=== PATIENT | female | born 1975 | race Caucasian/White ===

== ENCOUNTER → 2016-07-17 | Outpatient (CLI) | payer BC ==
[2014-12-19 13:45] VITALS: BP 128/81
[~2016-07-17] MED LIST: IBUP400T18 PO; IOHEXOL 300 MG/ML 75 ML VIAL. IV ONE; IOHEXOL 300 MG/ML 75 ML VIAL. ONE; TRAM-48 PO
--- NOTE | 2016-07-17 15:40 | RAD ---
CTA of the chest with contrast, 07/17/2016: History: Cough, shortness of breath Multidetector imaging was performed following an IV bolus injection of iodinated contrast material. Multiplanar reconstructions were produced including coronal MIP images. The degree of opacification of the pulmonary arteries is suboptimal, apparently related to the patient's size. No filling defects are seen in the main or lobar pulmonary arteries to suggest pulmonary emboli. The smaller pulmonary arteries are poorly delineated due to artifacts. There is minimal calcific plaquing of the thoracic aorta without evidence of aneurysm. No mediastinal or hilar adenopathy is seen. There is no evidence of pleural fluid. There are mild patchy groundglass opacities in both lungs. No dense pulmonary consolidation or mass is seen. The liver is of lower than normal density compatible with hepatic steatosis. There are mild scattered spurs in the spine. IMPRESSION: 1. No CT evidence of central pulmonary emboli, although the segmental and smaller pulmonary arteries were not adequately delineated due to technical factors. 2. Mild patchy groundglass opacities in both lungs, which may be due to a variety of causes including pneumonia on an infectious or hypersensitivity basis, pulmonary edema or interstitial lung disease. 3. Hepatic steatosis. PQRS Compliance Statement: One or more of the following individualized dose reduction techniques were utilized for this examination: 1. Automated exposure control 2. Adjustment of the mA and/or kV according to patient size 3. Use of iterative reconstruction technique
== END | disposition home or self-care (01) ==
LOC: CT 11:41
PROVIDERS: ATTEND Family Medicine
DX: R91.8 Other nonspecific abnormal finding of lung field (principal); K76.0 Fatty (change of) liver, not elsewhere classified; E11.9 Type 2 diabetes mellitus without complications; J44.9 Chronic obstructive pulmonary disease, unspecified
CPT/HCPCS: 71275; Q9967

== ENCOUNTER → 2019-11-20 | Outpatient (CLI) | payer BC ==
[2014-12-19 13:45] VITALS: BP 128/81
[~2019-11-20] MED LIST changes: -IOHEXOL 300 MG/ML 75 ML VIAL. IV ONE; -IOHEXOL 300 MG/ML 75 ML VIAL. ONE
--- NOTE | 2019-11-20 11:32 | RAD ---
EXAM: Pelvic sonogram. HISTORY: Vaginal bleeding. TECHNIQUE: Transabdominal sonographic imaging of the pelvis was performed. FINDINGS: The uterus and ovaries are surgically absent. The bladder is unremarkable. There is no pelvic mass, cyst or free fluid. IMPRESSION: 1. Surgically absent uterus and ovaries. 2. Otherwise, unremarkable pelvic sonogram. Electronically signed by: Carol Sagastume MD (11/20/2019 11:29 AM) [facility]
== END | disposition home or self-care (01) ==
LOC: US 08:55
PROVIDERS: ATTEND Family Medicine
DX: N94.6 Dysmenorrhea, unspecified (principal); Z90.710 Acquired absence of both cervix and uterus; Z90.722 Acquired absence of ovaries, bilateral
CPT/HCPCS: 76856

== ENCOUNTER 2019-12-24 12:27 | Emergency (ER) | payer BC ==
[~2019-12-24] VITALS: Ht 162.6 cm; Wt 97.3 kg
--- NOTE | 2019-12-24 12:58 | PHYS DOC ---
Past History Past Medical History: Anxiety, Asthma, Depression, Diabetes, Other Additional Past Medical Histor: PTSD Past Surgical History: , Hysterectomy Alcohol Use: Occasionally Drug Use: None General Adult EDM: Chief Complaint: MULTIPLE COMPLAINTS HPI: HPI: The history was obtained from the patient. Patient is a 44-year-old female with PMH anxiety, depression, insomnia, PTSD who presents with a chief complaint of chest tightness. Patient states that she experienced allergic reaction 2 days ago. She states she accidentally ingested cinnamon which she knows she has an allergy to. States at that time she began having shaking sensation and a mild rash. She states that she took a double dose of her home Claritin at the time. She states she does not react well to Benadryl. She states that she never had any shortness of breath or throat closure feeling. She states today when she woke up she felt somewhat shaky and had chest tightness. She also notes that it is somewhat difficult to swallow. Denies wheezing. Denies rash. Denies vomiting or diarrhea. Denies any history of exertional chest pain. Denies history of coronary artery disease or invasive cardiac testing. Denies family history of cardiac disease at young age. Denies cough or fever. States she does not think this is related to her history of anxiety. She does take Xanax nightly and during the day as needed. Denies any drug or alcohol ingestions. States that her family doctor encouraged her to report to the emergency department. No other complaints. Patient denies any history of immobilization greater than 48 hours, recent hospitalizations, recent surgery, recent trauma, , oral contraceptive usage, hormone replacement therapy, air travel greater than 8 hours, recent infectious disease, or general deterioration of their overall condition. Review of Systems: Review of Systems: Constitutional: Denies fever or chills Eyes: Denies change in visual acuity HENT: Denies nasal congestion or sore throat Respiratory: Denies cough or shortness of breath Cardiovascular: Positive for chest pain GI: Denies abdominal pain, nausea, vomiting, bloody stools or diarrhea : Denies dysuria Musculoskeletal: Denies back pain or joint pain Integument: Denies rash Neurologic: Denies headache, focal weakness or sensory changes Endocrine: Denies polyuria or polydipsia Lymphatic: Denies swollen glands Psychiatric: Denies depression or anxiety Heart Score: HEART Score for Chest Pain: HEART Score for Chest Pain Response (Comments) Value History Slighlty/Non-Suspicious 0 ECG Normal 0 Age >45 - < 65 1 Risk Factors No Risk Factors 0 Troponin < Normal Limit 0 Total 1 Risk Factors: Risk Factors: DM, Current or recent (<one month) smoker, HTN, HLP, family history of CAD, obesity. Risk Scores: Score 0 - 3: 2.5% MACE over next 6 weeks - Discharge Home Score 4 - 6: 20.3% MACE over next 6 weeks - Admit for Clinical Observation Score 7 - 10: 72.7% MACE over next 6 weeks - Early Invasive Strategies Allergies: Allergies: Allergies Coded Allergies Type Severity Reaction Last Updated Verified Amoxicillin Allergy Mild RASH 11/20/13 Yes diphenhydramine Allergy Mild RASH 11/20/13 Yes latex Allergy Mild RASH 11/20/13 Yes Physical Exam: PE: Constitutional: Well developed, well nourished, no acute distress, non-toxic appearance. [] HENT: Normocephalic, atraumatic, bilateral external ears normal, oropharynx m oist, no oral exudates, nose normal. [] Eyes: PERRLA, EOMI, conjunctiva normal, no discharge. [] Neck: Normal range of motion, no tenderness, supple, no stridor. [] Cardiovascular:Heart rate regular rhythm, no murmur [] Lungs & Thorax: Bilateral breath sounds clear to auscultation [] Abdomen: Bowel sounds normal, soft, no tenderness, no masses, no pulsatile masses. [] Skin: Warm, dry, no erythema, no rash. [] Back: No tenderness, no CVA tenderness. [] Extremities: No tenderness, no cyanosis, no clubbing, ROM intact, no edema. [] Neurologic: Alert and oriented X 3, normal motor function, normal sensory function, no focal deficits noted. [] Psychologic: Affect normal, judgement normal, mood normal. [] Current Patient Data: Vital Signs: Vital Signs Date Time Temp Pulse Resp B/P (MAP) Pulse Ox O2 Delivery O2 Flow Rate FiO2 12/24/19 12:27 97.2 75 24 141/101 (114) 98 Room Air EKG: EKG: [] EKG consistent with normal sinus rhythm. Ventricular to 75 bpm. Left axis noted. Flipped T waves noted in lead III. No other acute ischemic changes appreciated. Overall nonspecific EKG. Radiology/Procedures: Radiology/Procedures: [][address] [address] IMAGING REPORT Signed PATIENT: ROB PRATT: [id number] : 1975 LOCATION: ER AGE: 44 SEX: F EXAM STATUS: REG ER ORD. PHYSICIAN: ALAN GARCIA DO REASON: CP PROCEDURE: CHEST AP ONLY CHEST AP ONLY INDICATION: Reason: CP / Spl. Instructions: / History: . COMPARISON STUDY: None. FINDINGS: Lungs: Low lung volume. No pulmonary mass or consolidation. The tracheobronchial tree and hilar structures are normal. Pleura: No pleural effusion or pneumothorax. Heart and Mediastinum: The cardiomediastinal silhouette is normal. The great vessels of the thorax are normal. Bones and Soft Tissues: The bones and soft tissues are within normal limits. IMPRESSION: Low lung volume. No consolidation. Electronically signed by: Александр Stone MD (12/24/2019 1:19 PM) [id number] DICTATED AND SIGNED BY: АЛЕКСАНДР STONE MD DATE: 12/24/19 2896 CC: BALTAZAR HUTCHINS MD; ALAN GARCIA DO ~ Course & Med Decision Making: Course & Med Decision Making Pertinent Labs and Imaging studies reviewed. (See chart for details) [] Patient is an overall well-appearing 44-year-old female who presents with chief complaint of chest tightness. Denies any exertional component to her symptoms. Denies any typical cardiac chest pain symptoms. EKG unremarkable. D-dimer was obtained was negative. Given I do estimate the patient to be low risk for Wells criteria per criteria CT PE study will be deferred. All labs been unremarkable. By my estimation the patient is low risk heart score. I do feel she is appropriate for discharge home. I instructed her to follow-up with her primary care physician in the next 2 to 3 days. Return precautions discussed and understood. She is agreeable to this plan. Stable for discharge home. Dragon Disclaimer: Dragpradeep Disclaimer: This electronic medical record was generated, in whole or in part, using a voice recognition dictation system. Departure Departure: Impression: Primary Impression: Chest tightness Disposition: 01 HOME/RESIDENCE PRIOR TO ADM Condition: STABLE Referrals: BALTAZAR HUTCHINS MD (PCP) Patient Instructions: Anaphylactic Reaction, Chest Pain (Nonspecific) Additional Instructions: Please follow-up with your primary care physician in the next 2 to 3 days. Justification of Admission: Justification of Admission: Justification of Admission Dx: N/A ALAN GARCIA DO Dec 24, 2019 12:58
[2019-12-24 13:13] LABS: BASO % 0 % (0-3); EOS # 0.1 x10^3/uL (0.0-0.7); EOS % 1 % (0-3); HEMATOCRIT 41.7 % (36.0-47.0); HEMOGLOBIN 13.6 g/dL (12.0-15.5); LYMPH # 1.7 x10^3/uL (1.0-4.8); LYMPH % 30 % (24-48); MEAN CORPUSCULAR HEMOGLOBIN 29 pg (25-35); MEAN CORPUSCULAR HGB CONC 33 g/dL (31-37); MEAN CORPUSCULAR VOLUME 90 fL (79-100); MONO # 0.4 x10^3/uL (0.0-1.1); MONO % 7 % (0-9); NEUT # 3.6 x10^3uL (1.8-7.7); NEUT % 62 % (31-73); PLATELET COUNT 241 x10^3/uL (140-400); RED BLOOD COUNT 4.65 x10^6/uL (3.50-5.40); RED CELL DISTRIBUTION WIDTH 14.8 % (11.5-14.5); WHITE BLOOD COUNT 5.8 x10^3/uL (4.0-11.0)
[2019-12-24 13:21] LABS: CALCIUM 9.6 mg/dL (8.5-10.1); CREATININE 0.9 mg/dL (0.6-1.0); GFR 67.7; POTASSIUM 3.8 mmol/L (3.5-5.1)
--- NOTE | 2019-12-24 13:22 | RAD ---
CHEST AP ONLY INDICATION: Reason: CP / Spl. Instructions: / History: . COMPARISON STUDY: None. FINDINGS: Lungs: Low lung volume. No pulmonary mass or consolidation. The tracheobronchial tree and hilar structures are normal. Pleura: No pleural effusion or pneumothorax. Heart and Mediastinum: The cardiomediastinal silhouette is normal. The great vessels of the thorax are normal. Bones and Soft Tissues: The bones and soft tissues are within normal limits. IMPRESSION: Low lung volume. No consolidation. Electronically signed by: Abdirizak Stone MD (12/24/2019 1:19 PM) [id number]
--- NOTE | 2019-12-24 13:31 | EKG ---
[address] [address] Test Date: 2019-12-24 Test Time: 12:44:59 Pat Name: ROB PRATT Department: Room: Gender: F Vaccine Manager: TORSTEN : 1975 Requested By: ALAN GARCIA Order Number: [id number] Reading MD: Measurements Intervals [place] Rate: 75 P: 28 MA: 146 QRS: -10 QRSD: 78 T: -1 QT: 394 QTc: 443 Interpretive Statements SINUS RHYTHM LEFTWARD AXIS NO SPECIFIC ECG ABNORMALITIES RI6.02 No previous ECG available for comparison
[2019-12-24] MEDS ORDERED: hydrOXYzine HCL 25 MG TABLET PO ONE (14:15)
[2019-12-24 14:33] VITALS: BP 129/77
== END 2019-12-24 14:42 | disposition home or self-care (01) ==
LOC: ER 12:27
DX: R07.89 Other chest pain (principal); R21 Rash and other nonspecific skin eruption; F41.9 Anxiety disorder, unspecified; J45.909 Unspecified asthma, uncomplicated; F32.9 Major depressive disorder, single episode, unspecified; E11.9 Type 2 diabetes mellitus without complications; F43.10 Post-traumatic stress disorder, unspecified; Z88.1 Allergy status to other antibiotic agents; Z88.8 Allergy status to other drugs, medicaments and biological substances; Z91.040 Latex allergy status
CPT/HCPCS: 36415; 71045; 80048; 84484; 85025; 85379; 93005; 99285